=== PATIENT | male | born 1950 | race Caucasian/White ===

== ENCOUNTER 2016-11-19 09:46 | Inpatient (IN) | payer OTHER ==
[2016-11-19] MEDS ORDERED: Sodium Chloride 0.9% 1,000 ML PRIMARY IV ONE ×3 (09:56→19:01)
[2016-11-19] MEDS ORDERED: KETOROLAC 15 MG/1 ML VIAL IVP ONE (09:56)
--- NOTE | 2016-11-19 10:02 | PDOC ---
Gen Adult / Medical Screen HPI - General Chief Complaint: General Medical Stated Complaint: FEVER/CHILL Date Seen by Provider: 11/19/16 Time Seen by Provider: 09:57 Source: POSITIVE: Patient, Spouse Exam Limitations: POSITIVE: No limitations Nurse's Notes Reviewed & Considered: Yes - Indicators Temperature Between 95 and 101 Degrees: Yes Respirations Between 12 and 20: Yes Blood Pressure Between 100-165 (sys) and 60-100 (mcgill): Yes Pulse Range Between 60-105 (100 for age > 60 years): Yes Severe Pain (Greater than 5/10 Reported): No Chest or Abdominal Pain: No Inability to Walk: No Pt Reports Active High Risk Cond. (TB/Hepatitis/HIV/Chemo): No Abnormal Mental Status: No - History of Present Illness Initial Comments: Patient comes in with 48 hours of not feeling well. Patient's symptoms initially began on Wednesday with lower back pain at the level of his belt. This quickly developed into overall myalgias, nausea and vomiting, and fevers. His nausea and vomiting have resolved with no vomiting in the last 36 hours. He continues to have body aches and fever to 100.9. He denies any headache, sore throat, he has a mild cough, no chest pain or shortness of breath, presently no nausea vomiting or diarrhea, no abdominal pain, he does have some hesitancy of urination with decreased volume of urine. He denies any dysuria or hematuria. His states that his urine is slightly darker than normal. He denies any rashes. Body Location Affected: REPORTS: Other (Body aches) Timing: REPORTS: Constant Duration: >24 hours Similar Symptoms Previously: No Recent Care Received: REPORTS: Denies Any Prior Injuries Related to Current Complaint?: No - Patient Home Medications Home Medications: Home Medications NK [No Home Medications Reported] 11/19/16 - Patient Allergies Allergies/Adverse Reactions: Allergies Allergy/AdvReac Type Severity Reaction Status Date / Time No Known Allergies Allergy Verified 11/19/16 09:52 ROS - Limitations ROS Limitations: No Limitations Constitution: REPORTS: Fever Cardiovascular: REPORTS: Denies Cardiac Symptoms Respiratory: REPORTS: Cough Non Productive Neurological: REPORTS: Denies Neuro Symptoms Gastrointestinal: REPORTS: Denies GI Symptoms Endocrine: REPORTS: Denies Symptoms Musculoskeletal: REPORTS: Muscle Aches Genitourinary: REPORTS: Dark Urine, Difficulty Urinating, Other (Decreased volume of urine) Eyes: REPORTS: Denies Symptoms ENT: REPORTS: Denies Symptoms Skin: REPORTS: Denies Skin Symptoms Lympathic: REPORTS: Denies Lympathic Symptoms Immunologic: POSITIVE: Denies Symptoms Psychiatric: POSITIVE: Denies Psych Symptoms Gen Adult/Medical Screen Exam - General Appearance General Appearance: POSITIVE: Alert, Cooperative, No Acute Distress, No Evidence of Trauma - HEENT HEENT: POSITIVE: Head Inspection Nml, Eyes Inspection Nml, Ears Inspection Nml, Nose Inspection Nml, PERRL, EOMI - Pupils Pupil Size: 5 mm: Bilateral - Neck Neck: POSITIVE: Normal Inspection, Thyroid Normal - Respiratory Respiratory: POSITIVE: No Respiratory Distress, Breath Sounds Normal, Chest Non- Tender - Cardiovascular Cardiovascular: POSITIVE: No Murmur, No Gallop, PMI Normal, Tachycardia - Abdomen Abdomen: Soft: (All Quadrants), Normal Bowel Sounds: (All Quadrants), Denies Tenderness: (All Quadrants) - Back Back: POSITIVE: Normal Inspection - Neurological / Psychological Mental Status: POSITIVE: Mood Normal, Affect Normal Orientation: POSITIVE: Oriented x 3 - Skin Skin: POSITIVE: Normal Color, Warm, Dry, No Rash - Extremities Extremity: Non-Tender: (All Extremities), Normal ROM: (All Extremities), Normal Inspection: (All Extremities), Pelvis Stable: (All Extremities) Procedures - Laceration/Wound Repair Did patient have a laceration repair: No Gen Adlt/Medical Scrn Progress - Results Reviewed by me Xrays/CTs/US Reviewed by me: Yes Discussed with Radiologist: Yes Lab Results Reviewed: Yes Lab Results:: Laboratory Results 11/19/16 11/19/16 11/19/16 Range/Units 09:53 10:05 13:18 WBC 7.38 (4.8-10.8) 10^3/uL RBC 5.86 (4.70-6.10) 10^6/uL Hgb 15.5 (14.0-18.0) g/dL Hct 46.4 (42.0-52.0) % MCV 79.2 L (80-90) FL MCH 26.5 L (27-31) PG MCHC 33.4 (33-37) g/dL RDW Std Deviation 42.8 (39-50) fL RDW Coeff of Shayan 14.8 H (11.5-14.5) % Plt Count 151 (140-350) 10*3/uL MPV 8.1 (7.4-12.2) FL Immature Gran % (Auto) 0.1 (0-5) % Neut % (Auto) 87.3 H (50-80) % Lymph % (Auto) 5.6 L (10-50) % [place] % (Auto) 6.9 (5-15) % Eos % (Auto) 0 (0-8) % Baso % (Auto) 0.1 (0-1) % Immature Gran # (Auto) 0.01 10*3/UL Neut # (Auto) 6.44 10*3/UL Lymph # (Auto) 0.41 10*3/uL [place] # (Auto) 0.51 (0.3-0.8) 10*3/UL Eos # (Auto) 0 10*3/UL Baso # (Auto) 0.01 10*3/UL WBC Morphology Comment Normal morphology (NORM) Plt Morphology Comment Normal morphology (NORM) RBC Morph Comment Normal morphology (NORM) VBG pH 7.41 (7.32-7.42) VBG pCO2 33 L (45-55) mmHg VBG HCO3 21 L (22-26) mmol/L VBG Base Excess -4 L (-2-2) MMOL/L Sodium 137 (135-145) meq/L Potassium 4.2 (3.8-5.2) meq/L Chloride 100 (98-112) meq/L Carbon Dioxide 24 (23-33) meq/L Anion Gap 13 (5-20) BUN 22 (7-22) mg/dL Creatinine 1.7 H (0.70-1.50) mg/dL Estimated GFR 41 (>60 ml/min/1.73m(2)) BUN/Creatinine Ratio 12.94 (6-20) Glucose 128 H (78-110) mg/dL Calculated Osmolality 288.0 (267-292) mOsm/kg Calcium 8.5 L (8.7-10.7) mg/dL Magnesium 1.9 (1.6-2.4) mg/dL Total Bilirubin 0.7 (0.3-1.2) mg/dL AST 26 (21-57) IU/L ALT 21 (21-72) IU/L Alkaline Phosphatase 67 (38-126) IU/L Total Protein 7.8 (6.1-8.0) g/dL Albumin 4.3 (3.5-4.8) g/dL Globulin 3.6 (2.50-4.10) g/dL Albumin/Globulin Ratio 1.10 L (1.3-2.0) mg/g Ur Collection Type Clean catch urine Urine Color Yellow Urine Clarity Clear (CLEAR) Urine pH 6.0 (5.0-8.5) Ur Specific [place] 1.020 (1.005-1.030) Urine Protein >300 (NEG) mg/dl Urine Glucose (UA) Negative (NEG) mg/dL Urine Ketones Negative (NEG) Urine Occult Blood Moderate H (NEG) Urine Nitrate Negative (NEG) Urine Bilirubin Negative (NEG) Urine Urobilinogen 0.2 (0.2) EU/dL Ur Leukocyte Esterase Negative (NEG) Urine RBC 3-5 (NONE) /hpf Urine WBC None (NONE) Ur Squamous Epith Cells None (NONE) Ur Renal Epithelial Cell None (NONE) Urine Crystals None Urine Bacteria None (NONE) Urine Casts None (NONE) Urine Mucus None (NONE) Urine Trichomonas None (NONE) Urine Yeast None (NONE) Ur Culture Indicated? Culture not set - Patient's Progress Pain Medication Addressed: POSITIVE: Yes Re-Examine Time: 12:58 Status: POSITIVE: Improved MDM / ED Course: Mr. Cole was examined, an IV started, blood drawn and sent to the lab for studies, radiographic examinations were obtained. Patient received 15 mg of IV Toradol, a liter of normal saline. His body aches improved. I did consult with Dr. Bob Perrin, functional skills tutor in [facility], who is advising IV antibiotics, culture of urine and hospital admission. Findings: CBC has white count, hemoglobin, hematocrit, and platelets to be normal. Compensated metabolic panel shows creatinine to be 1.7. Urine analysis shows blood present. Ultrasound shows thickening of the cortical region of bilateral kidneys. Chest x-rays and normal chest radiograph. Blood cultures and urine cultures are pending. Assessment: Fever of unknown etiology, acute renal insufficiency. Plan: Admission, IV antibiotics. - Consult Consult (If Yes, Name of Consulting MD & Time Called): Yes (Dr. Young 1330 hours. ) Consulting MD will see pt:: POSITIVE: [facility] [place] Admit Counseled: POSITIVE: Patient, Family, RE: Lab Results, RE: Radiology Results, RE : DX Patient Care Time - Estimated PCT Patient Care Time (In Minutes): 45 Vital Signs - Recent Vital Signs Vital Signs: Vital Signs (Last 8 hours) Temp Pulse Resp BP Pulse Ox 11/19/16 09:48 100.9 F H 104 H 16 159/88 91 - VS Reviewed Vital Signs Reviewed: Yes Discharge Clinical Impression: Fever, Renal failure Discharge Disposition: Admit to Inpatient Condition: Stable Date Decision to Admit to Inpatient: 11/19/16 Time Decision to Admit to Inpatient: 13:30
[2016-11-19 10:14] LABS: BASOPHILS # (AUTO) 0.01 10*3/UL; BASOPHILS % (AUTO) 0.1 % (0-1); EOSINOPHILS # (AUTO) 0 10*3/UL; EOSINOPHILS % (AUTO) 0 % (0-8); HEMATOCRIT 46.4 % (42.0-52.0); HEMOGLOBIN 15.5 g/dL (14.0-18.0); LYMPHOCYTES # (AUTO) 0.41 10*3/uL; MEAN CORPUSCULAR HEMOGLOBIN 26.5 PG (27-31); MEAN CORPUSCULAR HGB CONC 33.4 g/dL (33-37); MEAN CORPUSCULAR VOLUME 79.2 FL (80-90); MEAN PLATELET VOLUME 8.1 FL (7.4-12.2); MONOCYTES # (AUTO) 0.51 10*3/UL (0.3-0.8); MONOCYTES % (AUTO) 6.9 % (5-15); NEUTROPHILS # (AUTO) 6.44 10*3/UL; NEUTROPHILS % (AUTO) 87.3 % (50-80); RED BLOOD COUNT 5.86 10^6/uL (4.70-6.10)
[2016-11-19 10:21] LABS: BUN/CREATININE RATIO 12.94 (6-20); CALCIUM 8.5 mg/dL (8.7-10.7); MAGNESIUM 1.9 mg/dL (1.6-2.4); SERUM ALBUMIN 4.3 g/dL (3.5-4.8)
[2016-11-19 10:26] LABS: BILIRUBIN,URINE NEGATIVE (NEG); CLARITY,URINE CLEAR (CLEAR); COLOR,URINE YELLOW; GLUCOSE, URINE (UA) NEGATIVE (NEG); NITRATE,URINE NEGATIVE (NEG); OCCULT BLOOD,URINE MODERATE (NEG); PROTEIN,URINE >300 mg/dl (NEG); UROBILINOGEN,URINE 0.2 EU/dL (0.2)
[2016-11-19 10:38] LABS: URINE SAMPLE TYPE CLEAN CATCH URINE
[2016-11-19 10:49] LABS: PLATELET MORPHOLOGY COMMENT NORMAL MORPHOLOGY (NORM); RBC MORPHOLOGY COMMENT NORMAL MORPHOLOGY (NORM); WBC MORPHOLOGY COMMENT NORMAL MORPHOLOGY (NORM)
--- NOTE | 2016-11-19 11:43 | DI ---
PA /LATERAL CHEST X-RAY, 11/19/2016 9:56 AM : Clinical History: Fever Previous Exam: None at this facility. There is no acute soft tissue or bony abnormality. Heart size is normal. Lungs are clear. Mediastinal structures are normal. There are no pulmonary nodules. IMPRESSION: Normal chest x-ray.
--- NOTE | 2016-11-19 12:38 | DI ---
US RETROPERITONEAL LIMITED,11/19/2016 11:00 AM: Clinical History: Hematuria, elevated creatinine, fever and back pain. Previous Exam: None at this facility. Findings: Multiple grayscale and color Doppler sonographic images are obtained through the retroperitoneum, and demonstrate some thinning of the renal cortices bilaterally. There is also a small 13 mm simple cyst noted within the interpolar region of the left kidney. There is no hydronephrosis nor nephrolithiasis. The urinary bladder is not well evaluated as it is poorly distended measuring approximately 42 cc. There is a 27cc postvoid residual. Both ureteral jets were identified. Impression: 1. Bilateral renal cortical thinning consistent with medical renal disease. 2. 42 cc pre-void residual with a 27 cc postvoid residual.
[2016-11-19] MEDS ORDERED: ACETAMINOPHEN 500 MG TABLET PO ONE (13:03)
[2016-11-19 13:26] LABS: VENOUS PH 7.41 (7.32-7.42)
[2016-11-19] MEDS ORDERED: cefTRIAXone Inj 2 GM in Sodium Chloride 0.9% 100 ML IV ONE (13:36)
[2016-11-19] MEDS ORDERED: NORMAL SALINE 10 ML SYRINGE FLUSH IVP PRN (14:25)
[2016-11-19] MEDS ORDERED: LIDOCAINE W/ SODIUM BICARB 0.5 ML SYR SUBD PRN (14:25)
[2016-11-19] MEDS ORDERED: cefTRIAXone Inj 2 GM in Sodium Chloride 0.9% 100 ML IV SCH (14:25)
[2016-11-19] MEDS ORDERED: ONDANSETRON 4 MG/2 ML VIAL IVP PRN (14:25)
--- NOTE | 2016-11-19 15:33 | PDOC ---
History and Physical - History of Present Illness History of Present Illness: This very nice 66-year-old gentleman who started not to feel well 48 hours ago with some nausea and vomiting and chills also had some lower belt back pain. He has not had much by mouth intake according to his and some generalized body aches. Denies chest pain cough shortness of breath abdominal pain diarrhea increased urinary frequency no dysuria or hematuria. I recommended that the ER physician consult with nephrology since his creatinine has been going on for the last 10 years this might be represent more of a intrinsic kidney disease or may be this is a viral illness and the kidney diseases separate the oxygraph operator did not think this was a vasculitis and recommended we admit him here Past Medical History Medical History: None Tobacco Use: Never Smoker Substance Use Type: None Medication / Allergies Home Medications: Home Medications Medication Instructions Recorded Confirmed Type NK [No Home Medications Reported] 11/19/16 11/19/16 History Allergies/Adverse Reactions: Allergies Allergy/AdvReac Type Severity Reaction Status Date / Time No Known Allergies Allergy Verified 11/19/16 09:52 Review of Systems - Review of Systems All Systems: Reviewed & No Additional Complaints Except as Stated - Integumentary Integumentary: DENIES: Negative System Review, Rash, Superficial Wound, Laceration, Puncture Wound, Foreign Body, Itching, Dryness, Ulcers, Color Changes, Moles, Hair Loss, Hirsutism, Other, See HPI - Eye Exam Eye Exam: DENIES: Negative System Review, Acuity Good, Acuity Fair, Acuity Poor , Glasses/Contacts, Vision Loss, Blurring, Redness, Diplopia, Catarats, Other, See HPI - Respiratory Respiratory: DENIES: Negative System Review, Cough, Sputum, Dyspnea At Rest, Dyspnea with Exertion, Pleuritic Pain, Hemoptysis, Wheezing, Other, See HPI - Cardiovascular Cardiovascular: DENIES: Negative System Review, Chest Pain, Edema, Syncope, Palpitations, Orthopnea, Paroxysmal Nocturnal Dyspnea, Other, See HPI - Gastrointestinal Gastrointestinal / Abdominal: REPORTS: Nausea, Vomiting - Genitourinary Genitourinary: DENIES: Negative System Review, Pain, Burning, Hematuria, Incontinence, Urgency, Hesitant Stream, Decreased Stream, Nocutria, Discharge, Sexual Dyfunction, Other, See HPI - Neurological Neurologic: DENIES: Negative System Review, Headache, Numbness/Paresthesia, Tremors, Weakness, Seizures, Head Trauma, LOC, Dizziness, Confusion, Memory Loss , Difficulty Walking, Incoordination, Other, See HPI Exam - Vitals Vital Signs: Vital Signs Temperature 100.9 F Temperature Source Temporal Artery Scan Pulse Rate [Pulse Oximeter] 107 Pulse Rate 109 Respiratory Rate 24 Blood Pressure 160/88 Pulse Ox 98 Oxygen Flow Rate 2 Oxygen Delivery Method Nasal Cannula Height 6 ft 1 in Weight 103.963 kg - General General Appearance: POSITIVE: No Acute Distress, Cooperative - Head Head Exam: POSITIVE: Normal Inspection, Normocephalic, Atraumatic - Respiratory Respiratory Exam: POSITIVE: Clear to Auscultation - Bilaterally, Breathing Non Labored, Normal To Percussion, Normal to Percussion and Palpation - Cardiovascular Cardiovascular Exam: POSITIVE: RRR, No Murmur, No Clicks, No Gallops - GI/Abdominal GI/Abdominal Exam: POSITIVE: Non Tender, Non Distended, Soft - Extremities Extremities Exam: POSITIVE: No Clubbing Present, No Edema Present, No Cyanosis Present - Neurological Neurological Exam: POSITIVE: Alert, Oriented x 3, CN II-XII Intact, No Facial Droop, Speech Intact / Clear Results - Labs CBC and BMP: 11/19/16 09:53 11/19/16 09:53 Assessment and Plan - Patient Problems (1) Fever Current Visit: Yes Status: Acute Comment: Unknown origin pain culture for urine and blood I will also use some broad-spectrum antibiotic with Pseudomonas coverage as well with cefepime. We will monitor the patient very closely to make sure this is not beginning of some septic episode without the etiology this could also represent viral illness because of the nausea and vomiting and body aches I will also check a flu (2) Renal failure Current Visit: Yes Status: Acute Comment: We'll hydrate at present time nephrology did not think this needed to be workup for vasculitis it is being going up for the last 10 years gradually I do believe he needs a nephrology consult I explained everything to family members and nursing present with discussion as well we will be awaiting the blood cultures and see evolution if there is any more signs that, at present time continue to hydrate broad-spectrum antibiotics and panculture
[2016-11-19] MEDS ORDERED: Cefepime Inj 1 GM in Sodium Chloride 0.9% 100 ML IV SCH (16:30)
[2016-11-19] MEDS ORDERED: Sodium Chloride 0.9% 100 ML IV ONE (16:37)
[2016-11-19] MEDS: Sodium Chloride 0.9% 1,000 ML PRIMARY IV SCH (16:41)
[2016-11-19 17:14] LABS: BUN/CREATININE RATIO 14.37 (6-20); CALCIUM 7.1 mg/dL (8.7-10.7); SERUM ALBUMIN 3.2 g/dL (3.5-4.8)
[2016-11-19] MEDS: ACETAMINOPHEN 325 MG TABLET PO PRN (19:39)
[2016-11-20] MEDS: ACETAMINOPHEN 325 MG TABLET PO PRN ×3 (00:42→12:05)
[2016-11-20] MEDS ORDERED: ACETAMINOPHEN 325 MG TABLET PO PRN (00:58)
[2016-11-20] MEDS: Sodium Chloride 0.9% 1,000 ML PRIMARY IV SCH (03:15)
[2016-11-20 05:23] LABS: BASOPHILS # (AUTO) 0.01 10*3/UL; BASOPHILS % (AUTO) 0.1 % (0-1); EOSINOPHILS # (AUTO) 0 10*3/UL; EOSINOPHILS % (AUTO) 0 % (0-8); HEMATOCRIT 41.6 % (42.0-52.0); LYMPHOCYTES # (AUTO) 0.65 10*3/uL; MEAN CORPUSCULAR HEMOGLOBIN 26.6 PG (27-31); MEAN CORPUSCULAR HGB CONC 33.7 g/dL (33-37); MEAN CORPUSCULAR VOLUME 79.1 FL (80-90); MEAN PLATELET VOLUME 8.3 FL (7.4-12.2); MONOCYTES # (AUTO) 0.56 10*3/UL (0.3-0.8); NEUTROPHILS # (AUTO) 8.05 10*3/UL; NEUTROPHILS % (AUTO) 86.3 % (50-80); RED BLOOD COUNT 5.26 10^6/uL (4.70-6.10)
[2016-11-20 05:28] LABS: PLATELET MORPHOLOGY COMMENT NORMAL MORPHOLOGY (NORM); RBC MORPHOLOGY COMMENT NORMAL MORPHOLOGY (NORM); WBC MORPHOLOGY COMMENT NORMAL MORPHOLOGY (NORM)
[2016-11-20 05:40] LABS: BUN/CREATININE RATIO 12.94 (6-20); CALCIUM 7.4 mg/dL (8.7-10.7)
[2016-11-20] MEDS ORDERED: Loperamide Tab 2 MG TABLET PO PRN (11:16)
[2016-11-20 11:41] VITALS: RESP 20
[2016-11-20 12:19] LABS: FREE T4 (FREE THYROXINE) 0.99 ng/dL (0.93-1.71)
[2016-11-20] MEDS ORDERED: cefTRIAXone Inj 2 GM in Sodium Chloride 0.9% 100 ML IV SCH (13:30)
[2016-11-20 14:13] VITALS: TEMP 102.6
--- NOTE | 2016-11-20 15:21 | DCSUMMARY ---
Hospitalization Summary Admit Date: 11/19/16 Discharge Date: 11/20/16 Primary Diagnosis:: fever of unknown origin Hospital Course: This very pleasant 66-year-old male that was admitted yesterday in the setting of fevers that have been persistent over the past 4-5 days or so. 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 Thus far, his workup for fever has been negative. His blood cultures are thus far negative, urine culture negative, white blood cell count negative, thyroid studies negative. He does not have any evidence of pneumonia on chest x-ray. Patient was initially put on empiric cefepime, but I felt that we could stop that as we do not know what were treating at this point. I spoke with infectious disease and hospitalist in [place], and we'll transfer the patient for further evaluation and workup of fever of unknown origin. Q fever could certainly be a diagnosis here but that would be a diagnosis of exclusion I believe at this point. I also ordered some tests to look at LUCY, rheumatoid factor, West Nile virus, and tickborne diseases ([place] spotted [place] fever). Endocarditis could be in the differential here as well, but I do not have the ability to do an echocardiogram. The only other issue during the hospital stays that we discovered the patient has what appears to be chronic kidney disease. His urinalysis showed some protein spilling in some hematuria in his retroperitoneal ultrasound shows renal cortical thinning consistent with medical renal disease. We'll try to arrange an outpatient follow-up with the kidney specialist for further evaluation. For this, advise no anti-inflammatories and to confirm with his doctors whether or not any medication might affect his kidneys. Today, the patient does not have any complaints of chest pain, shortness breath , nausea or vomiting. He does have a complaint of loose stools. C. difficile study was negative. Giardia, cryptosporidium, and stool studies are still pending. Assessment and Plan: 1. As per discharge assessments noted 2. Disposition: Patient is discharged to [facility] 3. Condition on discharge, stable, but based on his condition, his condition could deteriorate. It's been stabilized to the best of our ability. 4. Diet: regular diet 5. Activities: As per [facility] providers 6. Follow-Up: 1. Primary care provider 7 days post discharge. 2. 7. Medications at the Time of Discharge: Active Medications Generic Name Dose Route Start Last Admin Trade Name Freq PRN Reason Stop Dose Admin Acetaminophen 650 mg 11/19/16 14:25 11/20/16 12:05 Tylenol PO 650 mg Q6H PRN Administration Pain or Fever Sodium Chloride 1,000 mls @ 125 mls/hr 11/19/16 14:25 11/20/16 03:15 Normal Saline PRIMARY IV 125 mls/hr .Q8H ELAINA Administration Sodium Chloride 25 mls @ 200 mls/hr 11/19/16 14:25 Normal Saline 0.9% IV .Post Infusion PRN No Primary IV for Flush ONLY Lidocaine HCl 0.5 ml 11/19/16 14:25 Lidocaine Buffered Inj SUBD ONCE PRN IV Starts Loperamide HCl 2 mg 11/20/16 11:16 11/20/16 11:33 Imodium PO 2 mg Q4H PRN Administration Diarrhea Ondansetron HCl 4 mg 11/19/16 14:25 Zofran Inj IVP Q4H PRN NAUSEA / VOMITING Sodium Chloride 5 - 20 ml 11/19/16 14:25 Saline Flush IVP BID PRN Flush 8. Time, care, counseling and coordination of care for this discharge is greater than 30 minutes. Exam - Vitals Vital Signs: Vital Signs Temperature 102.6 F Temperature Source Oral Pulse Rate [Pulse Oximeter] 90 Pulse Rate 86 Respiratory Rate 20 Blood Pressure [Right Arm] 138/69 Blood Pressure 160/88 Pulse Ox 95 Oxygen Flow Rate 2 Oxygen Delivery Method Room Air Height 6 ft 1 in Weight 229 lb 6.4 oz - General General Appearance: POSITIVE: No Acute Distress, Cooperative - Head Head Exam: POSITIVE: Normal Inspection, Normocephalic, Atraumatic - Eye Eye Exam: POSITIVE: No Scleral Icterus - ENT ENT Exam: POSITIVE: Mucous Membranes Moist - Respiratory Respiratory Exam: POSITIVE: Clear to Auscultation - Bilaterally, Breathing Non Labored - Cardiovascular Cardiovascular Exam: POSITIVE: RRR, No Murmur, No Clicks, No Gallops, No Rubs, No JVD - GI/Abdominal GI/Abdominal Exam: POSITIVE: Normal Bowel Sounds, Non Tender, Non Distended, Soft - Extremities Extremities Exam: POSITIVE: No Clubbing Present, No Edema Present, No Cyanosis Present - Neurological Neurological Exam: POSITIVE: Alert, Oriented x 3, No Facial Droop, Speech Intact / Clear, Moves All Extremities Equally - Psychiatric Psychiatric Exam: POSITIVE: Normal Affect, Normal Mood Data Perinent Studies: Laboratory Results 11/19/16 11/19/16 11/19/16 Range/Units 09:53 10:05 13:10 WBC 7.38 (4.8-10.8) 10^3/uL RBC 5.86 (4.70-6.10) 10^6/uL Hgb 15.5 (14.0-18.0) g/dL Hct 46.4 (42.0-52.0) % MCV 79.2 L (80-90) FL MCH 26.5 L (27-31) PG MCHC 33.4 (33-37) g/dL RDW Std Deviation 42.8 (39-50) fL RDW Coeff of Shayan 14.8 H (11.5-14.5) % Plt Count 151 (140-350) 10*3/uL MPV 8.1 (7.4-12.2) FL Immature Gran % (Auto) 0.1 (0-5) % Neut % (Auto) 87.3 H (50-80) % Lymph % (Auto) 5.6 L (10-50) % [place] % (Auto) 6.9 (5-15) % Eos % (Auto) 0 (0-8) % Baso % (Auto) 0.1 (0-1) % Immature Gran # (Auto) 0.01 10*3/UL Neut # (Auto) 6.44 10*3/UL Lymph # (Auto) 0.41 10*3/uL [place] # (Auto) 0.51 (0.3-0.8) 10*3/UL Eos # (Auto) 0 10*3/UL Baso # (Auto) 0.01 10*3/UL WBC Morphology Comment Normal morphology (NORM) Plt Morphology Comment Normal morphology (NORM) RBC Morph Comment Normal morphology (NORM) ESR (0-15) MM/HR VBG pH (7.32-7.42) VBG pCO2 (45-55) mmHg VBG HCO3 (22-26) mmol/L VBG Base Excess (-2-2) MMOL/L Sodium 137 (135-145) meq/L Potassium 4.2 (3.8-5.2) meq/L Chloride 100 (98-112) meq/L Carbon Dioxide 24 (23-33) meq/L Anion Gap 13 (5-20) BUN 22 (7-22) mg/dL Creatinine 1.7 H (0.70-1.50) mg/dL Estimated GFR 41 (>60 ml/min/1.73m(2)) BUN/Creatinine Ratio 12.94 (6-20) Glucose 128 H (78-110) mg/dL Calculated Osmolality 288.0 (267-292) mOsm/kg Lactic Acid 1.4 (0.70-2.10) MMOL/L Calcium 8.5 L (8.7-10.7) mg/dL Magnesium 1.9 (1.6-2.4) mg/dL Total Bilirubin 0.7 (0.3-1.2) mg/dL AST 26 (21-57) IU/L ALT 21 (21-72) IU/L Alkaline Phosphatase 67 (38-126) IU/L C-Reactive Protein (0.0-0.9) mg/dL Total Protein 7.8 (6.1-8.0) g/dL Albumin 4.3 (3.5-4.8) g/dL Globulin 3.6 (2.50-4.10) g/dL Albumin/Globulin Ratio 1.10 L (1.3-2.0) mg/g TSH (0.2700-4.2000) uIU/mL Free T4 (0.93-1.71) ng/dL Ur Collection Type Clean catch urine Urine Color Yellow Urine Clarity Clear (CLEAR) Urine pH 6.0 (5.0-8.5) Ur Specific [place] 1.020 (1.005-1.030) Urine Protein >300 (NEG) mg/dl Urine Glucose (UA) Negative (NEG) mg/dL Urine Ketones Negative (NEG) Urine Occult Blood Moderate H (NEG) Urine Nitrate Negative (NEG) Urine Bilirubin Negative (NEG) Urine Urobilinogen 0.2 (0.2) EU/dL Ur Leukocyte Esterase Negative (NEG) Urine RBC 3-5 (NONE) /hpf Urine WBC None (NONE) Ur Squamous Epith Cells None (NONE) Ur Renal Epithelial Cell None (NONE) Urine Crystals None Urine Bacteria None (NONE) Urine Casts None (NONE) Urine Mucus None (NONE) Urine Trichomonas None (NONE) Urine Yeast None (NONE) Ur Culture Indicated? Culture not set 11/19/16 11/19/16 11/20/16 Range/Units 13:18 16:59 05:15 WBC 9.33 (4.8-10.8) 10^3/uL RBC 5.26 (4.70-6.10) 10^6/uL Hgb 14.0 (14.0-18.0) g/dL Hct 41.6 L (42.0-52.0) % MCV 79.1 L (80-90) FL MCH 26.6 L (27-31) PG MCHC 33.7 (33-37) g/dL RDW Std Deviation 43.1 (39-50) fL RDW Coeff of Shayan 14.9 H (11.5-14.5) % Plt Count 95 L (140-350) 10*3/uL MPV 8.3 (7.4-12.2) FL Immature Gran % (Auto) 0.6 (0-5) % Neut % (Auto) 86.3 H (50-80) % Lymph % (Auto) 7.0 L (10-50) % [place] % (Auto) 6.0 (5-15) % Eos % (Auto) 0 (0-8) % Baso % (Auto) 0.1 (0-1) % Immature Gran # (Auto) 0.06 10*3/UL Neut # (Auto) 8.05 10*3/UL Lymph # (Auto) 0.65 10*3/uL [place] # (Auto) 0.56 (0.3-0.8) 10*3/UL Eos # (Auto) 0 10*3/UL Baso # (Auto) 0.01 10*3/UL WBC Morphology Comment Normal morphology (NORM) Plt Morphology Comment Normal morphology (NORM) RBC Morph Comment Normal morphology (NORM) ESR (0-15) MM/HR VBG pH 7.41 (7.32-7.42) VBG pCO2 33 L (45-55) mmHg VBG HCO3 21 L (22-26) mmol/L VBG Base Excess -4 L (-2-2) MMOL/L Sodium 135 135 (135-145) meq/L Potassium 4.0 4.1 (3.8-5.2) meq/L Chloride 106 108 (98-112) meq/L Carbon Dioxide 20 L 17 L (23-33) meq/L Anion Gap 9 10 (5-20) BUN 23 H 22 (7-22) mg/dL Creatinine 1.6 H 1.7 H (0.70-1.50) mg/dL Estimated GFR 44 41 (>60 ml/min/1.73m(2)) BUN/Creatinine Ratio 14.37 12.94 (6-20) Glucose 144 H 109 (78-110) mg/dL Calculated Osmolality 286.0 283.0 (267-292) mOsm/kg Lactic Acid (0.70-2.10) MMOL/L Calcium 7.1 L 7.4 L (8.7-10.7) mg/dL Magnesium (1.6-2.4) mg/dL Total Bilirubin 0.4 (0.3-1.2) mg/dL AST 33 (21-57) IU/L ALT 22 (21-72) IU/L Alkaline Phosphatase 49 (38-126) IU/L C-Reactive Protein (0.0-0.9) mg/dL Total Protein 6.1 (6.1-8.0) g/dL Albumin 3.2 L (3.5-4.8) g/dL Globulin 2.9 (2.50-4.10) g/dL Albumin/Globulin Ratio 1.10 L (1.3-2.0) mg/g TSH (0.2700-4.2000) uIU/mL Free T4 (0.93-1.71) ng/dL Ur Collection Type Urine Color Urine Clarity (CLEAR) Urine pH (5.0-8.5) Ur Specific [place] (1.005-1.030) Urine Protein (NEG) mg/dl Urine Glucose (UA) (NEG) mg/dL Urine Ketones (NEG) Urine Occult Blood (NEG) Urine Nitrate (NEG) Urine Bilirubin (NEG) Urine Urobilinogen (0.2) EU/dL Ur Leukocyte Esterase (NEG) Urine RBC (NONE) /hpf Urine WBC (NONE) Ur Squamous Epith Cells (NONE) Ur Renal Epithelial Cell (NONE) Urine Crystals Urine Bacteria (NONE) Urine Casts (NONE) Urine Mucus (NONE) Urine Trichomonas (NONE) Urine Yeast (NONE) Ur Culture Indicated? 11/20/16 11/20/16 Range/Units 11:30 11:34 WBC (4.8-10.8) 10^3/uL RBC (4.70-6.10) 10^6/uL Hgb (14.0-18.0) g/dL Hct (42.0-52.0) % MCV (80-90) FL MCH (27-31) PG MCHC (33-37) g/dL RDW Std Deviation (39-50) fL RDW Coeff of Shayan (11.5-14.5) % Plt Count (140-350) 10*3/uL MPV (7.4-12.2) FL Immature Gran % (Auto) (0-5) % Neut % (Auto) (50-80) % Lymph % (Auto) (10-50) % [place] % (Auto) (5-15) % Eos % (Auto) (0-8) % Baso % (Auto) (0-1) % Immature Gran # (Auto) 10*3/UL Neut # (Auto) 10*3/UL Lymph # (Auto) 10*3/uL [place] # (Auto) (0.3-0.8) 10*3/UL Eos # (Auto) 10*3/UL Baso # (Auto) 10*3/UL WBC Morphology Comment (NORM) Plt Morphology Comment (NORM) RBC Morph Comment (NORM) ESR 7 (0-15) MM/HR VBG pH (7.32-7.42) VBG pCO2 (45-55) mmHg VBG HCO3 (22-26) mmol/L VBG Base Excess (-2-2) MMOL/L Sodium (135-145) meq/L Potassium (3.8-5.2) meq/L Chloride (98-112) meq/L Carbon Dioxide (23-33) meq/L Anion Gap (5-20) BUN (7-22) mg/dL Creatinine (0.70-1.50) mg/dL Estimated GFR (>60 ml/min/1.73m(2)) BUN/Creatinine Ratio (6-20) Glucose (78-110) mg/dL Calculated Osmolality (267-292) mOsm/kg Lactic Acid (0.70-2.10) MMOL/L Calcium (8.7-10.7) mg/dL Magnesium (1.6-2.4) mg/dL Total Bilirubin (0.3-1.2) mg/dL AST (21-57) IU/L ALT (21-72) IU/L Alkaline Phosphatase (38-126) IU/L C-Reactive Protein 17.0 H (0.0-0.9) mg/dL Total Protein (6.1-8.0) g/dL Albumin (3.5-4.8) g/dL Globulin (2.50-4.10) g/dL Albumin/Globulin Ratio (1.3-2.0) mg/g TSH 1.46 (0.2700-4.2000) uIU/mL Free T4 0.99 (0.93-1.71) ng/dL Ur Collection Type Urine Color Urine Clarity (CLEAR) Urine pH (5.0-8.5) Ur Specific [place] (1.005-1.030) Urine Protein (NEG) mg/dl Urine Glucose (UA) (NEG) mg/dL Urine Ketones (NEG) Urine Occult Blood (NEG) Urine Nitrate (NEG) Urine Bilirubin (NEG) Urine Urobilinogen (0.2) EU/dL Ur Leukocyte Esterase (NEG) Urine RBC (NONE) /hpf Urine WBC (NONE) Ur Squamous Epith Cells (NONE) Ur Renal Epithelial Cell (NONE) Urine Crystals Urine Bacteria (NONE) Urine Casts (NONE) Urine Mucus (NONE) Urine Trichomonas (NONE) Urine Yeast (NONE) Ur Culture Indicated? Chest x-ray negative. Pending are the following: LUCY Rheumatoid factor West Nile virus PCR studies [place] tick fever studies. Patient Problems - Patient Problem List (1) Fever of unknown origin Current Visit: Yes Status: Acute (2) Chronic kidney disease, stage III (moderate) Current Visit: Yes Status: Acute
[2016-11-22 07:56] LABS: MYELOPEROXIDASE AB <0.2 U (()); PROTEINASE-3 ANTIBODY <0.2 U (())
[2016-11-25 12:22] LABS: EHFLICHIA CHAFFEENSIS IGG <1:64 titer (<1:64)
[2016-11-25 17:46] LABS: WEST NILE VIRUS IGM SERUM Negative (Negative)
== END 2016-11-20 15:35 | disposition short-term general hospital (02) | DRG 864 ==
LOC: ER 09:46 → MED/SURG 13:35
PROVIDERS: ADMIT Internal Medicine; ATTEND Internal Medicine
DX: N19 Unspecified kidney failure (principal); R50.9 Fever, unspecified; N18.3 Chronic kidney disease, stage 3 (moderate)
CPT/HCPCS: 36415; 71020; 76775; 80048; 80053; 81001; 81003; 82803; 83516; 83605; 83735; 84439; 84443; 85025; 85652; 86038; 86140; 86431; 86618; 86666; 86738; 86753; 86788; 86789; 86790; 87040; 87088; 87493; 87798; 87804; 96361; 96365; 96375; 99284; J0692; J0696; J1885; J7030; J7050